=== PATIENT | male | born 1955 | race Caucasian/White ===

== ENCOUNTER 2016-08-18 10:31 | Emergency (ER) | payer OTHER ==
[~2016-08-18] VITALS: Wt 90.6 kg
[~2016-08-18 10:31] MED LIST: ALBU18HF IH; ASPI325T32 PO; COLC0.6T49 PO; FENO200C8 PO; IBUP800T25 PO; SMV40T PO
--- NOTE | 2016-08-18 12:03 | RADRPT ---
PROCEDURE: US Lower extremity Venous. CLINICAL INDICATION: Right leg swelling TECHNIQUE: Multiple sonographic images of the right lower extremity deep venous system was obtaine d utilizing grayscale, color-flow, compressive sonography and doppler imaging with augmentation. Th e images were reviewed on a PACS workstation. COMPARISON: None. FINDINGS: There is normal compressibility and flow within the right common femoral, superficial femoral, poste rior tibial, peroneal and popliteal veins. RPTAT: AA IMPRESSION: No sonographic evidence for deep venous thrombosis. .Mario Montgomery MD, MD Date Time Electronically viewed and signed by .Mario Montgomery MD, on 08/18/2016 12:03 .S/
--- NOTE | 2016-08-18 12:17 | RADRPT ---
PROCEDURE: XR Knee. CLINICAL INDICATION: Knee pain TECHNIQUE: Three views of the right knee are available for review. COMPARISON: None available FINDINGS: The medial and lateral femorotibial compartments are preserved, as is the patellofemoral compartment . There is no acute osseous abnormality, marginal erosion or evidence of fracture. A small joint ef fusion is likely present.. There is prepatellar and pretibial soft tissue swelling. IMPRESSION: 1. No acute osseous abnormality. 2. Mild prepatellar and pretibial soft tissue swelling. 3. Probable small joint effusion. RPTAT: PP .Frederick Villavicencio MD, MD Date Time Electronically viewed and signed by .Frederick Villavicencio MD, on 08/18/2016 12:17 .d/
[2016-08-18] MEDS ORDERED: CEPH-443 PO (12:25)
--- NOTE | 2016-08-18 12:33 | ERD ---
ER Documentation Chief Complaint Date/Time DATE: 08/18/16 TIME: 12:29 Chief Complaint r knee pain from a fall 2 days ago . HPI Patient has right knee pain with mild swelling that is chronic however 2 days ago he does state he hit his knee against something. He is able to ambulate. No fevers. No numbness or tingling. Denies any chest pain or shortness of breath. Pain is mild to moderate. ROS All systems reviewed and are negative except as per history of present illness. Medications Home Meds Active Scripts Cephalexin* (Keflex*) 500 Mg Capsule, 500 MG PO QID for 7 Days, CAP Prov:ANTHONY SHAFER PA-C 08/18/16 Ibuprofen* (Motrin*) 800 Mg Tab, 800 MG PO Q6H Y for PAIN AND OR ELEVATED TEMP, #30 TAB Prov:MARY MEDINA. [employer] 09/21/15 Reported Medications Albuterol Sulfate* (Ventolin HFA*) 18 Gm Hfa.aer.ad, 18 GM IH PRN 05/16/12 Aspirin* (Aspirin* EC) 325 Mg Tablet.dr, 325 MG PO DAILY 05/16/12 Simvastatin (Simvastatin) 40 Mg Tablet, 40 MG PO HS 05/16/12 Fenofibrate, Micronized* (Fenofibrate*) 200 Mg Capsule, 200 MG PO HS 05/16/12 Colchicine (Colchicine) 0.6 Mg Tablet, 0.6 MG PO BID 05/16/12 Allergies Allergies: Coded Allergies: No Known Allergies (Verified Allergy, Unknown, 09/21/15) PMhx/Soc History of Surgery: Yes Anesthesia Reaction: No Hx Neurological Disorder: No Hx Respiratory Disorders: No Hx Cardiac Disorders: Yes (DYSLIPIDEMIA) Hx Psychiatric Problems: No Hx Miscellaneous Medical Probl: Yes (BILATERAL INGUINAL HERNIA) Hx Alcohol Use: Yes (SOCIALLY) Hx Substance Use: No Hx Tobacco Use: Yes Smoking Status: Never smoker FmHx Family History: No diabetes Physical Exam Vitals Vital Signs Date Time Temp Pulse Resp B/P Pulse Ox O2 Delivery O2 Flow Rate FiO2 08/18/16 10:33 98.0 80 21 121/64 98 Physical Exam General: well developed, well nourished, alert, nontoxic, no distress Head: normocephalic, atraumatic Neck: Supple, nontender, no lymphadenopathy, no midline tenderness Respiratory: Clear to auscaultation bilaterally, speaks in full sentences, no use of accesory muscles or labored breathing, no rales, ronchi, or wheezing Cardiovascular: RRR, No murmurs Back: no midline tenderness, no step offs or bony abnormalities, sensation to light touch in tact Extremities: Right knee pain has mild soft tissue swelling just below the patella, with mild erythema, patient has full active and passive range of motion in the knee, sensation to light touch intact, popliteal pulse normal, mild swelling below the knee over the calf Procedures/MDM Patient is a 60-year-old male who has right knee pain and swelling after trauma. He is neurovascularly intact. X-rays were negative. He is ambulatory. Patient also has some mild right lower extremity edema and therefore did order a venous 2+ ultrasound which showed no evidence of DVT.. I doubt septic joint. Patient discharged with keflex as there is mild erythema. Patient was also given copy of radiology reports are that he can follow with primary care. Recommended this patient follow up with her primary care doctor within 48 hours or return to the emergency room for any worsening of symptoms. However this time I do believe there is suitable for outpatient management. I answered all their questions and they agreed with the plan and were discharged home. Departure Diagnosis: Primary Impression: Knee effusion Condition: Stable Patient Instructions: Knee Effusion Additional Instructions: Call your primary care doctor TOMORROW for an appointment during the next 1-2 days.See the doctor sooner or return here if your condition worsens before your appointment time. ANTHONY SHAFER PA-C Aug 18, 2016 12:33
== END 2016-08-18 12:55 | disposition home or self-care (01) ==
LOC: FTE 10:31
DX: M25.461 Effusion, right knee (principal); W01.10XA Fall on same level from slipping, tripping and stumbling with subsequent striking against unspecified object, initial encounter; Y92.9 Unspecified place or not applicable; Z87.891 Personal history of nicotine dependence; Z79.82 Long term (current) use of aspirin
CPT/HCPCS: 73562; 93971; Z7502